=== PATIENT | female | born 1985 | race Caucasian/White ===

== ENCOUNTER 2018-10-15 06:00 | Inpatient (IN) | payer OTHER ==
[~2018-10-15] VITALS: Ht 165.1 cm; Wt 86.6 kg
[~2018-10-15 06:00] MED LIST: CITRIC ACID/SODIUM CITRATE 30 ML SOLUTION UDCUP PO ONE; IBUP-2071 PO; METOCLOPRAMIDE HCL 5 MG/ML 2 ML VIAL IVP ONE; RINGERS SOLUTION,LACTATED 1,000 ML IV ONE; [UNRECOGNIZED DRUG - CODE] PO
[2018-10-15 06:23] VITALS: BP 109/65
[2018-10-15] MEDS ORDERED: PREN-134 PO (06:28)
[2018-10-15 06:36] LABS: BASOPHILS % (AUTO) 0.8 % (0.0-2.0); EOSINOPHILS % (AUTO) 0.6 % (1.0-6.0); HEMATOCRIT 32.6 % (36-46); HEMOGLOBIN 10.5 g/dL (12.0-16.0); LYMPHOCYTES # (AUTO) 1.6 K/uL (1.0-4.8); LYMPHOCYTES % (AUTO) 21.1 % (22.0-44.0); MEAN CORPUSCULAR HGB CONC 32.3 G/dL (31.0-37.0); MEAN CORPUSCULAR VOLUME 78 fL (80-100); MONOCYTES # (AUTO) 0.4 K/uL (0.1-1.0); NEUTROPHILS # (AUTO) 5.6 K/uL (1.8-7.7); NEUTROPHILS % (AUTO) 72.5 % (40.0-70.0); PLATELET COUNT (AUTO) 218 K/uL (150-450); RED CELL DISTRIBUTION WIDTH 16.7 % (11.5-14.5)
[2018-10-15] MEDS ORDERED: FentaNYL CITRATE-PF 100 MCG/2 ML VIAL ONE (07:32)
[2018-10-15] MEDS ORDERED: ACETAMINOPHEN 1000 MG/ISO-OSM 100 ML IV ONE (07:33)
[2018-10-15] MEDS ORDERED: MORPHINE SULFATE/PF 0.5 MG/ML 10 ML AMP ONE (07:33)
[2018-10-15] MEDS ORDERED: BUPIVACAINE HCL/DEX-WATER/PF 0.75% 2 ML AMP ONE (07:33)
[2018-10-15] MEDS ORDERED: GUM MASTIC/STORAX/MSAL/ALCOHOL LIQUID 0.67 ML VIAL TP ONE (08:22)
[2018-10-15] MEDS ORDERED: NALBUPHINE HCL 10 MG/ML VIAL IVP PRN ×3 (08:30)
[2018-10-15] MEDS ORDERED: DiphenhydrAMINE HCL 50 MG/ML VIAL IVP PRN ×2 (08:30)
[2018-10-15] MEDS ORDERED: ONDANSETRON HCL 4 MG/2 ML VIAL IVP PRN ×2 (08:30)
[2018-10-15] MEDS ORDERED: DEXAMETHASONE SOD PHOS 4 MG/ML VIAL IVP PRN (08:30)
[2018-10-15] MEDS ORDERED: MORPHINE SULFATE 10 MG/ML SYRINGE IVP PRN (08:30)
[2018-10-15] MEDS ORDERED: NALOXONE HCL 0.4 MG/ML VIAL IVP PRN (08:30)
[2018-10-15] MEDS ORDERED: RINGERS SOLUTION,LACTATED 1,000 ML IV ONE (09:27)
[2018-10-15] MEDS ORDERED: OXYTOCIN 30 UNITS/LACT RINGERS 500 ML IV ONE (09:29)
[2018-10-15] MEDS ORDERED: LANOLIN 7 GM OINTMENT TP PRN (09:30)
[2018-10-15] MEDS: RINGERS SOLUTION,LACTATED 1,000 ML IV SCH ×2 (15:26→23:33)
[2018-10-15] MEDS: ACETAMINOPHEN 1000 MG/ISO-OSM 100 ML IV SCH ×2 (16:18→23:33)
[2018-10-15] MEDS ORDERED: OXYGEN THERAPY IH SCH ×3 (20:00)
[2018-10-15] MEDS: MAGNESIUM HYDROXIDE SUSPENSION 30 ML UDCUP PO SCH (21:24)
[2018-10-16] MEDS ORDERED: OXYTOCIN 10 UNITS/ML VIAL IM ONE (05:33)
[2018-10-16] MEDS ORDERED: 0.9% SODIUM CHLORIDE 10 ML VIAL IVP ONE (05:33)
[2018-10-16] MEDS ORDERED: EPHEDrine SULFATE 50 MG/ML VIAL IM ONE (05:33)
[2018-10-16] MEDS ORDERED: ONDANSETRON HCL 4 MG/2 ML VIAL IVP ONE (05:33)
[2018-10-16] MEDS: FentaNYL CITRATE-PF 100 MCG/2 ML VIAL IVP PRN ×2 (05:58→07:47)
[2018-10-16 07:10] LABS: BASOPHILS % (AUTO) 0.3 % (0.0-2.0); EOSINOPHILS % (AUTO) 0.4 % (1.0-6.0); HEMATOCRIT 29.8 % (36-46); HEMOGLOBIN 9.7 g/dL (12.0-16.0); LYMPHOCYTES # (AUTO) 1.7 K/uL (1.0-4.8); LYMPHOCYTES % (AUTO) 17.7 % (22.0-44.0); MEAN CORPUSCULAR HEMOGLOBIN 25.2 pg (26.0-34.0); MEAN CORPUSCULAR HGB CONC 32.6 G/dL (31.0-37.0); MEAN CORPUSCULAR VOLUME 78 fL (80-100); MONOCYTES # (AUTO) 0.7 K/uL (0.1-1.0); MONOCYTES % (AUTO) 7.2 % (2.0-9.0); NEUTROPHILS # (AUTO) 7.3 K/uL (1.8-7.7); NEUTROPHILS % (AUTO) 74.4 % (40.0-70.0); PLATELET COUNT (AUTO)-OB 188 K/uL (150-450); RED BLOOD CELL COUNT(AUTO) 3.85 MIL/uL (4.00-5.20); RED CELL DISTRIBUTION WIDTH 16.5 % (11.5-14.5)
[2018-10-16] MEDS: OxyCODONE HCL/ACETAMINOPHEN 5-325 MG TABLET PO PRN ×3 (09:56→20:53)
[2018-10-16] MEDS: IBUPROFEN 800 MG TABLET PO PRN ×2 (10:33→17:47)
[2018-10-16] MEDS: MAGNESIUM HYDROXIDE SUSPENSION 30 ML UDCUP PO SCH (20:51)
[2018-10-17] MEDS: IBUPROFEN 800 MG TABLET PO PRN ×4 (00:26→19:34)
[2018-10-17] MEDS: OxyCODONE HCL/ACETAMINOPHEN 5-325 MG TABLET PO PRN ×3 (06:34→17:03)
[2018-10-17] MEDS: MAGNESIUM HYDROXIDE SUSPENSION 30 ML UDCUP PO SCH (08:44)
[2018-10-17] MEDS ORDERED: PERCT PO ×2 (10:37→10:38)
[2018-10-17] MEDS ORDERED: IBUP-2071 PO (10:38)
[2018-10-17] MEDS ORDERED: DSS100 PO (10:39)
[2018-10-17] MEDS ORDERED: FERR-89 PO (10:39)
[2018-10-17] MEDS ORDERED: RINGERS SOLUTION,LACTATED 1,000 ML IV ONE (16:14)
[2018-10-17] MEDS ORDERED: SODIUM CHLORIDE 0.9% 1,000 ML IV ONE (16:15)
== END 2018-10-17 19:35 | disposition home or self-care (01) | DRG 788 ==
LOC: 4S 06:00 → PREOBSVTOIN 11-19 06:18
PROVIDERS: ADMIT Obstetrics & Gynecology; ATTEND Obstetrics & Gynecology
PROC: 10D00Z1 Extraction of Products of Conception, Low, Open Approach (ICD-10-PCS; principal; 2018-10-15)
DX: O99.824 Streptococcus B carrier state complicating childbirth (principal); O36.63X0 Maternal care for excessive fetal growth, third trimester, not applicable or unspecified; Z3A.39 39 weeks gestation of pregnancy; Z37.0 Single live birth
CPT/HCPCS: 86850; 86900; 86901; 87081; J0131; J0690; J2274; J2405; J2590; J2765; J3010; J3490; J7030; J7120

== ENCOUNTER 2020-04-27 18:18 | Inpatient (IN) | payer OTHER ==
[~2020-04-27] VITALS: Ht 165.1 cm; Wt 84.5 kg
[~2020-04-27 18:18] MED LIST changes: -CITRIC ACID/SODIUM CITRATE 30 ML SOLUTION UDCUP PO ONE; +DSS100 PO; +FERR-89 PO; -METOCLOPRAMIDE HCL 5 MG/ML 2 ML VIAL IVP ONE; +PERCT PO; +PREN-134 PO; -RINGERS SOLUTION,LACTATED 1,000 ML IV ONE; -[UNRECOGNIZED DRUG - CODE] PO
[2020-04-27] MEDS ORDERED: CITRIC ACID/SODIUM CITRATE 30 ML SOLUTION UDCUP PO ONE (19:15)
[2020-04-27] MEDS ORDERED: METOCLOPRAMIDE HCL 5 MG/ML 2 ML VIAL IVP ONE (19:15)
[2020-04-27 19:59] VITALS: BP 109/67
[2020-04-27 20:14] LABS: COVID AG,FIA SOURCE NASOPHARYNGEAL
[2020-04-27 20:16] LABS: BASOPHILS % (AUTO) 0.6 % (0.0-2.0); EOSINOPHILS % (AUTO) 0.3 % (1.0-6.0); HEMATOCRIT 32.9 % (36-46); HEMOGLOBIN 10.9 g/dL (12.0-16.0); LYMPHOCYTES # (AUTO) 1.7 K/uL (1.0-4.8); MEAN CORPUSCULAR HEMOGLOBIN 25.2 pg (26.0-34.0); MEAN CORPUSCULAR HGB CONC 33.2 G/dL (31.0-37.0); MEAN CORPUSCULAR VOLUME 76 fL (80-100); MONOCYTES # (AUTO) 0.4 K/uL (0.1-1.0); MONOCYTES % (AUTO) 5.4 % (2.0-9.0); NEUTROPHILS # (AUTO) 5.7 K/uL (1.8-7.7); NEUTROPHILS % (AUTO) 71.7 % (40.0-70.0); PLATELET COUNT (AUTO)-OB 208 K/uL (150-450); RED BLOOD CELL COUNT(AUTO) 4.33 MIL/uL (4.00-5.20); RED CELL DISTRIBUTION WIDTH 15.5 % (11.5-14.5)
[2020-04-27 21:04] LABS: GLUCOMETER DEV NAME(LOC) 4S.; GLUCOSE,POINT OF CARE 76 MG/DL (70-110)
[2020-04-28] MEDS ORDERED: RINGERS SOLUTION,LACTATED 1,000 ML IV SCH (05:00)
[2020-04-28] MEDS ORDERED: CITRIC ACID/SODIUM CITRATE 30 ML SOLUTION UDCUP ONE (10:14)
[2020-04-28] MEDS ORDERED: METOCLOPRAMIDE HCL 5 MG/ML 2 ML VIAL ONE (10:15)
[2020-04-28] MEDS ORDERED: CeFAZolin 2 GM/DEXTROSE 50 ML IV ONE (10:20)
[2020-04-28] MEDS ORDERED: ACETAMINOPHEN 1000 MG/ISO-OSM 100 ML IV ONE (10:20)
[2020-04-28] MEDS ORDERED: MORPHINE SULFATE/PF 0.5 MG/ML 10 ML AMP ONE (10:20)
[2020-04-28] MEDS ORDERED: FentaNYL CITRATE PF 100 MCG/2 ML VIAL ONE (10:20)
[2020-04-28] MEDS ORDERED: BUPIVACAINE HCL/DEX-WATER/PF 0.75% 2 ML AMP ITH ONE (10:20)
[2020-04-28] MEDS ORDERED: OXYTOCIN 30 UNITS/LACT RINGERS 500 ML IV ONE (11:30)
[2020-04-28] MEDS ORDERED: LANOLIN 7 GM OINTMENT TP PRN (11:30)
[2020-04-28] MEDS ORDERED: OxyCODONE HCL/ACETAMINOPHEN 5-325 MG TABLET PO PRN (11:30)
[2020-04-28] MEDS ORDERED: NALOXONE HCL 0.4 MG/ML VIAL IVP PRN (12:45)
[2020-04-28] MEDS ORDERED: MEPERIDINE-PF 25 MG/ML VIAL IVP PRN (12:45)
[2020-04-28] MEDS ORDERED: NALBUPHINE HCL 10 MG/ML VIAL IVP PRN ×3 (12:45)
[2020-04-28] MEDS ORDERED: DiphenhydrAMINE HCL 50 MG/ML VIAL IVP PRN ×2 (12:45)
[2020-04-28] MEDS ORDERED: ONDANSETRON HCL 4 MG/2 ML VIAL IVP PRN (12:45)
[2020-04-28] MEDS ORDERED: FentaNYL CITRATE PF 100 MCG/2 ML VIAL IVP PRN ×2 (12:45)
[2020-04-28] MEDS ORDERED: RINGERS SOLUTION,LACTATED 1,000 ML IV ONE (13:20)
[2020-04-28] MEDS: RINGERS SOLUTION,LACTATED 1,000 ML IV SCH ×2 (13:24→19:59)
[2020-04-28] MEDS ORDERED: PNEUMOCOCCAL VACCINE POLYVALENT 0.5 ML VIAL [PPSV23] IM ONE (16:30)
[2020-04-28] MEDS: KETOROLAC TROMETHAMINE 30 MG/ML VIAL IVP SCH ×2 (17:33→23:50)
[2020-04-28] MEDS: MAGNESIUM HYDROXIDE SUSPENSION 30 ML UDCUP PO SCH (19:57)
[2020-04-28] MEDS: ACETAMINOPHEN 1000 MG/ISO-OSM 100 ML IV SCH (19:57)
[2020-04-28] MEDS ORDERED: OXYGEN THERAPY IH SCH ×2 (20:00)
[2020-04-29] MEDS: ACETAMINOPHEN 1000 MG/ISO-OSM 100 ML IV SCH (04:01)
[2020-04-29 09:02] LABS: HEMATOCRIT 32.2 % (36-46); HEMOGLOBIN 10.5 g/dL (12.0-16.0); LYMPHOCYTES % (AUTO) 17.7 % (22.0-44.0); MEAN CORPUSCULAR HGB CONC 32.8 G/dL (31.0-37.0); MEAN CORPUSCULAR VOLUME 76 fL (80-100); MONOCYTES % (AUTO) 4.3 % (2.0-9.0); NEUTROPHILS % (AUTO) 77.4 % (40.0-70.0); PLATELET COUNT (AUTO)-OB 189 K/uL (150-450); RED BLOOD CELL COUNT(AUTO) 4.22 MIL/uL (4.00-5.20); RED CELL DISTRIBUTION WIDTH 16.1 % (11.5-14.5)
[2020-04-29 09:03] LABS: BASOPHILS % (AUTO) 0.4 % (0.0-2.0); EOSINOPHILS % (AUTO) 0.2 % (1.0-6.0); LYMPHOCYTES # (AUTO) 1.8 K/uL (1.0-4.8); MONOCYTES # (AUTO) 0.4 K/uL (0.1-1.0); NEUTROPHILS # (AUTO) 7.7 K/uL (1.8-7.7)
[2020-04-29] MEDS: MAGNESIUM HYDROXIDE SUSPENSION 30 ML UDCUP PO SCH ×2 (09:24→20:35)
[2020-04-29] MEDS: IBUPROFEN 800 MG TABLET PO PRN ×2 (11:19→18:05)
[2020-04-29] MEDS: OxyCODONE HCL/ACETAMINOPHEN 5-325 MG TABLET PO PRN (13:35)
[2020-04-30] MEDS: IBUPROFEN 800 MG TABLET PO PRN ×3 (00:01→11:54)
[2020-04-30] MEDS: OxyCODONE HCL/ACETAMINOPHEN 5-325 MG TABLET PO PRN (08:28)
[2020-04-30] MEDS ORDERED: IBUP-2071 PO (08:40)
[2020-04-30] MEDS ORDERED: FERR-89 PO (08:41)
[2020-04-30] MEDS ORDERED: DOCU-275 PO (08:42)
[2020-04-30] MEDS ORDERED: PERCT PO (08:44)
[2020-04-30] MEDS: MAGNESIUM HYDROXIDE SUSPENSION 30 ML UDCUP PO SCH (11:53)
== END 2020-04-30 13:20 | disposition home or self-care (01) | DRG 788 ==
LOC: 4S 18:18 → PREOBSVTOIN 05-06 18:30
PROVIDERS: ADMIT Obstetrics & Gynecology; ATTEND Obstetrics & Gynecology
PROC: 10D00Z1 Extraction of Products of Conception, Low, Open Approach (ICD-10-PCS; principal; 2020-04-28)
DX: O34.211 Maternal care for low transverse scar from previous cesarean delivery (principal); O24.429 Gestational diabetes mellitus in childbirth, unspecified control; Z3A.38 38 weeks gestation of pregnancy; Z37.0 Single live birth
CPT/HCPCS: 59025; 86850; 86900; 86901; 87081; 87426; J0131; J0690; J1885; J2274; J2765; J3010; J3490; J7120